=== PATIENT | male | born 1990 | race Caucasian/White ===

== ENCOUNTER 2017-02-14 23:24 | Emergency (ER) | payer OTHER ==
[~2017-02-14] VITALS: Ht 165.1 cm; Wt 68.0 kg
[~2017-02-14 23:24] MED LIST: ADDERALL XR30 MG; AMOXICILLIN500 M3 PO; BACTRIM DS 8001 TA1 PO; CIPRO500 MG PO; CLINDAMYCIN HC300 MG PO; CLINDAMYCIN150 MG PO; CORTISPORIN 1%7.5 M1 OP; DYAZIDE 25 MG-31 CAP PO; Depakote ER500 MG; FACTOR VIII IV; FLAGYL500 MG PO; Fioricet 325 MG1 TAB PO; HYDROCODONE BIT1 T11 PO; KEFLEX500 MG PO; KENALOG0.1% TP; Peridex 473 ML473 ML PO; ROBAXIN750 MG PO; TRAMADOL HCL50 MG PO; TYLENOL W/CODEI1 TA2 PO; VICODIN 5/500 505 MG PO; [UNRECOGNIZED DRUG - OTHER] IV
[2017-02-14 23:29] VITALS: BP 137/55
[2017-02-14] MEDS ORDERED: AMOXICILLIN500 M2 PO (23:46)
== END 2017-02-15 00:16 | disposition home or self-care (01) ==
LOC: ED 23:24
DX: K08.89 Other specified disorders of teeth and supporting structures (principal); F17.200 Nicotine dependence, unspecified, uncomplicated; Z88.6 Allergy status to analgesic agent; Z88.8 Allergy status to other drugs, medicaments and biological substances; Z79.899 Other long term (current) drug therapy

== ENCOUNTER 2017-06-01 22:09 | Emergency (ER) | payer OTHER ==
[~2017-06-01] VITALS: Ht 167.6 cm; Wt 73.5 kg
[~2017-06-01 22:09] MED LIST changes: +AMOXICILLIN500 M2 PO
[2017-06-01 22:28] VITALS: BP 126/68
[2017-06-01] MEDS ORDERED: CYCLOBENZAPRINE5 M3 PO (23:42)
== END 2017-06-02 00:16 | disposition home or self-care (01) ==
LOC: ED 22:09
DX: M25.511 Pain in right shoulder (principal); M25.512 Pain in left shoulder; F17.200 Nicotine dependence, unspecified, uncomplicated; Z88.8 Allergy status to other drugs, medicaments and biological substances; Z88.6 Allergy status to analgesic agent; V86.99XA Unspecified occupant of other special all-terrain or other off-road motor vehicle injured in nontraffic accident, initial encounter; Y93.89 Activity, other specified; Y92.89 Other specified places as the place of occurrence of the external cause; Y99.8 Other external cause status

== ENCOUNTER 2018-10-11 04:02 | Emergency (ER) | payer OTHER ==
[~2018-10-11] VITALS: Ht 167.6 cm; Wt 68.0 kg
[~2018-10-11 04:02] MED LIST changes: +CYCLOBENZAPRINE5 M3 PO
[2018-10-11 04:04] VITALS: BP 161/78
== END 2018-10-11 04:56 | disposition left against medical advice (07) ==
LOC: ED 04:02
DX: R42 Dizziness and giddiness (principal); Z88.6 Allergy status to analgesic agent; Z88.8 Allergy status to other drugs, medicaments and biological substances

== ENCOUNTER 2019-04-12 23:49 | Emergency (ER) | payer OTHER ==
[~2019-04-12] VITALS: Ht 167.6 cm; Wt 72.6 kg
[2019-04-12 23:49] VITALS: BP 123/70
[2019-04-13] MEDS ORDERED: SEPTDS PO (00:18)
== END 2019-04-13 00:20 | disposition home or self-care (01) ==
LOC: ED 23:49
DX: L02.221 Furuncle of abdominal wall (principal); Z88.6 Allergy status to analgesic agent; Z88.8 Allergy status to other drugs, medicaments and biological substances; Z98.890 Other specified postprocedural states

== ENCOUNTER 2019-04-26 22:02 | Emergency (ER) | payer OTHER ==
[~2019-04-26] VITALS: Ht 167.6 cm; Wt 72.6 kg
[~2019-04-26 22:02] MED LIST changes: +SEPTDS PO
[2019-04-26 22:03] VITALS: BP 112/61
[2019-04-26 22:33] LABS: BASO % 0.5 % (0.0-1.0); EOS # 0.2 10*3/uL (0.0-0.4); EOS % 2.4 % (1.0-4.0); HEMATOCRIT 42.2 % (42.0-52.0); HEMOGLOBIN 13.8 g/dl (14.0-18.0); LYMPH # 3.4 10*3/uL (1.3-4.4); LYMPH % 40.2 % (27.0-41.0); MEAN CELL VOLUME 87.9 fl (80.0-94.0); MEAN CORPUSCULAR HGB 28.8 pg (27.0-31.0); MEAN CORPUSCULAR HGB CONC 32.7 g/dl (33.0-37.0); MEAN PLATELET VOLUME 10.7 fl (9.6-12.3); MONO # 0.5 10*3/uL (0.1-1.0); NEUT # 4.3 10*3/uL (2.3-7.9); NEUT % 50.7 % (47.0-73.0); PLATELET COUNT AUTOMATED 207 10*3/uL (130-400); RED CELL DISTRI WIDTH 12.9 % (0-14.5); WHITE BLOOD COUNT 8.5 10*3/uL (4.8-10.8)
[2019-04-26 22:48] LABS: ALBUMIN 3.9 gm/dl (3.1-4.5); ALKALINE PHOSPHATASE 82 U/L (45-117); BUN 14 mg/dl (7-24); CHLORIDE 106 mmol/L (98-107); CREATININE 1.04 mg/dL (0.70-1.30); POTASSIUM 3.8 mmol/L (3.5-5.1); SGOT/AST 15 IU/L (3-35); SGPT/ALT 21 U/L (12-78); SODIUM 140 mmol/L (136-145)
[2019-04-26] MEDS ORDERED: DOXYCYCLINE100 M3 PO (22:52)
== END 2019-04-26 23:08 | disposition home or self-care (01) ==
LOC: ED 22:02
PROVIDERS: Student in an Organized Health Care Education/Training Program
DX: L73.9 Follicular disorder, unspecified (principal); Z88.6 Allergy status to analgesic agent; Z88.8 Allergy status to other drugs, medicaments and biological substances

== ENCOUNTER 2020-05-10 22:56 | Emergency (ER) | payer OTHER ==
[~2020-05-10] VITALS: Ht 167.6 cm; Wt 72.6 kg
[~2020-05-10 22:56] MED LIST changes: +DOXYCYCLINE100 M3 PO
[2020-05-10 23:11] VITALS: BP 117/55
== END 2020-05-11 01:54 | disposition home or self-care (01) ==
LOC: ED 22:56
DX: S09.90XA Unspecified injury of head, initial encounter (principal); Z88.8 Allergy status to other drugs, medicaments and biological substances; Z88.5 Allergy status to narcotic agent; Z79.899 Other long term (current) drug therapy; V86.56XA Driver of dirt bike or motor/cross bike injured in nontraffic accident, initial encounter; Y93.89 Activity, other specified; Y92.89 Other specified places as the place of occurrence of the external cause; Y99.8 Other external cause status

== ENCOUNTER 2021-01-17 18:34 | Emergency (ER) | payer OTHER ==
[~2021-01-17] VITALS: Wt 74.8 kg
[2021-01-17 18:41] VITALS: BP 144/71
[2021-01-17 19:15] LABS: BASO % 0.2 % (0.0-1.0); EOS # 0.1 10*3/uL (0.0-0.4); EOS % 0.4 % (1.0-4.0); HEMATOCRIT 42.9 % (42.0-52.0); LYMPH # 1.9 10*3/uL (1.3-4.4); LYMPH % 14.7 % (27.0-41.0); MEAN CELL VOLUME 87.7 fl (80.0-94.0); MEAN CORPUSCULAR HGB 28.6 pg (27.0-31.0); MEAN CORPUSCULAR HGB CONC 32.6 g/dl (33.0-37.0); MEAN PLATELET VOLUME 10.3 fl (9.6-12.3); MONO # 0.7 10*3/uL (0.1-1.0); MONO % 5.3 % (3.0-9.0); NEUT # 10.1 10*3/uL (2.3-7.9); PLATELET COUNT AUTOMATED 228 10*3/uL (130-400); RED BLOOD COUNT 4.89 10*6/uL (4.50-5.90); RED CELL DISTRI WIDTH 12.9 % (0-14.5); WHITE BLOOD COUNT 12.7 10*3/uL (4.8-10.8)
[2021-01-17 19:27] LABS: BUN 14 mg/dl (7-24); CHLORIDE 109 mmol/L (98-107); CREATININE 1.16 mg/dL (0.70-1.30); POTASSIUM 3.6 mmol/L (3.5-5.1); SODIUM 138 mmol/L (136-145)
== END 2021-01-17 21:31 | disposition home or self-care (01) ==
LOC: ED 18:34
PROVIDERS: Internal Medicine
DX: S80.211A Abrasion, right knee, initial encounter (principal); S00.81XA Abrasion of other part of head, initial encounter; S20.311A Abrasion of right front wall of thorax, initial encounter; I10 Essential (primary) hypertension; F17.200 Nicotine dependence, unspecified, uncomplicated; Z88.8 Allergy status to other drugs, medicaments and biological substances; Z88.5 Allergy status to narcotic agent; Z79.899 Other long term (current) drug therapy; Z98.890 Other specified postprocedural states; V29.9XXA Motorcycle rider (driver) (passenger) injured in unspecified traffic accident, initial encounter; Y93.89 Activity, other specified; Y92.89 Other specified places as the place of occurrence of the external cause; Y99.8 Other external cause status

== ENCOUNTER 2023-05-31 16:22 | Emergency (ER) | payer OTHER ==
[~2023-05-31] VITALS: Ht 167.6 cm; Wt 78.5 kg
[2023-05-31] MEDS ORDERED: [UNRECOGNIZED DRUG - OTHER] SQ (16:29)
[2023-05-31 16:39] VITALS: BP 115/71
== END 2023-05-31 16:55 | disposition home or self-care (01) ==
LOC: ED 16:22
DX: S20.211A Contusion of right front wall of thorax, initial encounter (principal); S90.31XA Contusion of right foot, initial encounter; D66 Hereditary factor VIII deficiency; I10 Essential (primary) hypertension; Z88.6 Allergy status to analgesic agent; Z88.8 Allergy status to other drugs, medicaments and biological substances; Z98.890 Other specified postprocedural states; V29.39XA Other motorcycle (driver) (passenger) injured in unspecified nontraffic accident, initial encounter; Y93.89 Activity, other specified; Y92.89 Other specified places as the place of occurrence of the external cause; Y99.8 Other external cause status

== ENCOUNTER 2024-06-10 03:34 | Emergency (ER) | payer OTHER ==
[~2024-06-10] VITALS: Ht 167 cm; Wt 70.3 kg
[~2024-06-10 03:34] MED LIST changes: +[UNRECOGNIZED DRUG - OTHER] SQ
[2024-06-10 03:44] VITALS: BP 134/87
[2024-06-10 04:04] LABS: BASO # 0.1 10*3/uL (0.0-0.1); BASO % 0.3 % (0.0-1.0); EOS % 0.1 % (1.0-4.0); HEMATOCRIT 44.8 % (42.0-52.0); LYMPH # 2.2 10*3/uL (1.3-4.4); LYMPH % 14.6 % (27.0-41.0); MEAN CELL VOLUME 87.8 fl (80.0-94.0); MEAN CORPUSCULAR HGB 28.6 pg (27.0-31.0); MEAN CORPUSCULAR HGB CONC 32.6 g/dl (33.0-37.0); MEAN PLATELET VOLUME 10.1 fl (9.6-12.3); MONO # 0.9 10*3/uL (0.1-1.0); MONO % 6.3 % (3.0-9.0); NEUT # 11.6 10*3/uL (2.3-7.9); NEUT % 78.3 % (47.0-73.0); PLATELET COUNT AUTOMATED 262 10*3/uL (130-400); RED CELL DISTRI WIDTH 13.2 % (0-14.5); WHITE BLOOD COUNT 14.9 10*3/uL (4.8-10.8)
== END 2024-06-10 04:21 ==
LOC: ED 03:34
PROVIDERS: Internal Medicine
DX: S50.12XA Contusion of left forearm, initial encounter (principal); S50.11XA Contusion of right forearm, initial encounter; D66 Hereditary factor VIII deficiency; I10 Essential (primary) hypertension; Z53.29 Procedure and treatment not carried out because of patient's decision for other reasons; Z88.6 Allergy status to analgesic agent; Z88.8 Allergy status to other drugs, medicaments and biological substances; Z98.890 Other specified postprocedural states; X58.XXXA Exposure to other specified factors, initial encounter; Y93.89 Activity, other specified; Y92.149 Unspecified place in prison as the place of occurrence of the external cause; Y99.8 Other external cause status